=== PATIENT | female | born 1995 | race Caucasian/White ===

== ENCOUNTER 2024-10-30 19:06 | Emergency (ER) | payer BC, SELFPAY ==
[2024-10-30] VITALS (28 sets, daily range): BP systolic 90–157; BP diastolic 61–84; PULSE 75–96; RESP 20; TEMP 36.3; O2SAT 71–100
--- NOTE | 2024-10-30 19:15 | DI.CT_ITS ---
Exam(s) CT ABDOMEN PELVIS W EXAM: CT ABDOMEN PELVIS W CLINICAL HISTORY: epigastric abdominal pain. TECHNIQUE: Imaging Protocol: Axial computed tomography images with coronal and sagittal reformatted images were created and reviewed CONTRAST MATERIAL: Intravenous: Omnipaque-350 95cc COMPARISON: No exams were available for comparison FINDINGS: VISUALIZED LUNG BASES: No nodules nor pleural effusions evident. ABDOMEN: There is no ascites in the upper abdomen. LIVER: There are no focal hepatic lesions evident. No dilated intrahepatic ducts. GALLBLADDER/BILIARY: Gallbladder surgically absent. CBD is not dilated. PANCREAS: No evidence of pancreatic mass nor dilatation of the pancreatic duct. SPLEEN: Spleen is not enlarged. No obvious intrasplenic lesions. Splenic and portal veins are paten t. ADRENALS: There are no significant adrenal masses. KIDNEYS:No cysts evident. No solid renal masses. No calculi nor hydronephrosis.. ABDOMINAL AORTA: Abdominal aorta is not enlarged. LYMPH NODES:There is no retroperitoneal nor paraaortic adenopathy. ABDOMINAL WALL: No evidence of significant anterior abdominal wall nor inguinal hernia. GI: There is no evidence of bowel obstruction, free air, nor abscess. PELVIS: GI: Appendix is difficult to locate is a independent structure.No evidence of sigmoid diverticulitis. LYMPH NODES: There is no intrapelvic nor inguinal adenopathy. REPRODUCTIVE: Thickened endometrium which is age-appropriate. There is some fluid in it in the endoc ervical canal. There are cysts noted in both ovaries. This cyst in the right ovary measures 1.7 x 1 .8 cm. Small amount of fluid in the right-side of the pelvis noted. URINARY BLADDER: No calculi nor obvious masses evident OSSEOUS: No fractures and no significant osseous lesions. IMPRESSION: 1. The gallbladder surgically absent. The biliary tree is not dilated. No other findings in the upp er abdomen. 2. In the pelvis there is a 1.7 x 1.8 cm cyst in the right ovary probably dominant follicular and the re is a small amount of fluid in the right-side of the pelvis which is possibly related to female phy siologic versus is partially ruptured ovarian cyst. Cannot exclude appendicitis as the appendix is n ot able to be identified as a separate structure here. 3. If clinically indicated recommend repeat study with oral contrast. RADIATION DOSE DELIVERED: 403.82mGy.cm Total DLP DATA REPOSITORY: All CT scans at this facility are submitted to the National Radiology Data Registry (NRDR) Dose Index Registry (DIR) with the [employer] (ACR). RADIATION OPTIMIZATION: All CT scans at this facility use at least one of these dose optimization te chniques: automated exposure control; mA and/or kV adjustment per patient size (includes targeted exa ms where dose is matched to clinical indication); or iterative reconstruction.
--- NOTE | 2024-10-30 19:26 | ED.GENADUL_ITS ---
Discharge Plan Disposition Patient Disposition: Home Discharge Details Clinical Impression: Abdominal pain Primary Care Provider: Ruthann Morrell ED Provider: Flaco Murillo Home Meds and New Rx's Prescriptions: No Action No Known Home Meds Discharge Instructions Instructions: Abdominal Pain, Adult ED Referrals: Ruthann Morrell [Primary Care Provider] - 1 week HPI General Mode of arrival: ambulatory . Date/Time Provider Initiated Documentation: 10/30/24 19:13 . Limitations to Documentation: no limitations . Information obtained by: patient . HPI Narrative: 29-year-old female previously healthy presents with nausea vomiting abdominal pain. Dealing with this off and on for the last few months. Much worse in the last week and escalating over the last few days. Does not feel like she can take anything else and immediately has abdominal pain with eating. She has had nausea and vomiting. She has had loose stools. She has had dark stools but no obviously bloody or black stools. No vaginal bleeding or discharge. No urinary symptoms. She has had her gallbladder removed in the past. She has had a C- section in the past. Denies any other medical conditions or other previous surgeries. No allergies. She smokes cigarettes but she does not drink or do any drugs. Related Data Home Medications ?Medication ?Instructions ?Recorded ?Confirmed Unknown [No Known Home Meds] 10/30/24 10/30/24 Allergies Allergy/AdvReac Type Severity Reaction Status Date / Time No Known Allergies Allergy Unverified 10/30/24 19:13 General Stated Complaint: Abd Prob JOSE ANTONIO: 3 Review of Systems Constitutional Constitutional: Denies chills, Denies fever(s) and Denies headache(s) Eyes Eyes: Denies change in vision ENT Ears, Nose, Mouth, and Throat: Denies headache(s) and Denies odynophagia Cardiovascular Cardiovascular: Denies chest pain and Denies dyspnea Respiratory Respiratory: Denies dyspnea Gastrointestinal Gastrointestinal: Reports abdominal pain, Reports diarrhea, Reports nausea, Denies odynophagia and Reports vomiting Genitourinary Genitourinary: Denies abnormal vaginal bleeding, Denies menorrhagia, Denies dysuria, Denies pelvic pain and Denies vaginal discharge Musculoskeletal Musculoskeletal: Denies myalgias Integumentary/Breasts Skin/Breast: Denies changing lesions Neurologic Neurologic: Denies behavioral changes and Denies headache(s) Psychiatric Psychiatric: Denies behavioral changes Endocrine Endocrine: Denies heat intolerance Hematologic/Lymphatic Hematologic/Lymphatic: Denies lymphadenopathy Exam Const General: cooperative Nutritional Appearance: average body habitus Orientation: alert, awake and oriented x3 HENMT Head: normal to inspection Ears: external ears normal Mouth: moist mucous membranes Eyes Pupils: PERRL EOM: EOM intact bilaterally and No nystagmus Neck Neck: full ROM and no tracheal deviation Chest Chest: normal inspection of the chest Resp Auscultation: clear to auscultation bilaterally Cardio Rate: regular rate Rhythm: regular rhythm GI Inspection: normal to inspection Palpation: soft, no guarding and not rigid Other: Tender throughout the abdomen but primarily in the epigastric abdominal region with no guarding, rigidity, or rebound Back/Spine/Pelvis Back: No no CVA tenderness Thoracic/Lumbar Spine: thoracic and lumbar spine normal to inspection Skin General skin exam: no rashes or lesions noted Neuro General: patient alert, patient awake and patient oriented x3 Cranial Nerves: CN's II-XI intact bilaterally, PERRL and no nystagmus Cognition: normal cognition Motor: muscle tone normal throughout and strength 5/5 throughout Sensory Exam: no sensory deficits noted Extrem General: normal to inspection Course Vital Signs Vital signs: Vital Signs Temperature 36.3 C L 10/30/24 19:09 Pulse 95 H 10/30/24 19:09 Respiratory Rate 20 10/30/24 19:09 Blood Pressure 157/81 H 10/30/24 19:09 Pulse Oximetry 99 10/30/24 19:09 Temperature 36.3 C L 10/30/24 19:12 Pulse 95 H 10/30/24 19:12 Respiratory Rate 20 10/30/24 19:12 Blood Pressure 157/81 H 10/30/24 19:12 Pulse Oximetry 99 10/30/24 19:12 Oxygen Delivery Method Room Air 10/30/24 19:12 Oxygen Flow Rate 0 10/30/24 19:12 Medical Decision Making This is a 29-year-old female history of smoking, previous cholecystectomy, previous who is now presenting with nausea vomiting and abdominal pain. Heavily associated with the eating. Could represent GERD gastritis or peptic ulcer disease. Will check CBC to look for anemia. Will get biliary labs to look for signs of hepatitis, pancreatitis, or other biliary obstruction. Will check though less likely given patient's reported history. Will get broad labs to look for electrolyte or metabolic cause of the patient's symptoms such as hyponatremia, hypokalemia, acute renal dysfunction or signs of dehydration. She is tender throughout the abdomen and will get CT abdomen pelvis to evaluate for intra-abdominal abscess or bowel obstruction. This will also evaluate for kidney stones. Will also help us to evaluate for diverticulitis or appendicitis so I think that these are less likely. Will provide some IV analgesia as well as treatment for suspected GERD/gastritis/peptic ulcer disease while awaiting initial testing and reevaluate. 1130pm Labs unremarkable. CT showing possible colitis. No risk factors for C. difficile. No risk factors for fecal bacterial pathogen such as Shigella or Salmonella or Campylobacter. Likely a viral colitis. Still offered to send stool studies for her if she could give us a sample and she was able to provide 1 here. Will send testing for C. difficile, fecal bacterial pathogens, Giardia and Cryptosporidium as well as an ova and parasite exam given the acute on chronic nature of her diarrhea and abdominal pain. CT was also showing possible abscess versus focal bowel loop with air-fluid levels in the pelvis. I suspect that this most likely represents bowel seen in the pelvis and less likely to represent an abscess. She does still have pain. Again it does appear that the tenderness is more in the epigastric region making an abscess in the pelvis much less likely. Had a long discussion with the patient about the risks and benefits of repeating a scan with oral contrast as recommended with radiology. She would like to drink the contrast and go forward with the CT abdomen pelvis. I added on the stool studies. The CT abdomen pelvis was still pending. Signed out to the oncoming team pending CT abdomen pelvis and reevaluation. Medical Records Medical records reviewed: Yes I reviewed the patient's medical records. Imaging Data Radiologic Study: Attestation: I personally reviewed and interpreted this imaging study as follows: Imaging: CT Scan (abd and pelvis with IV contrast on 10/30/24 at 755pm) Radiologist's impression: IMPRESSION: 1. There is small caliber and decompression of the descending colon and sigmoid colon. Colonic fatty mural change present, most often a normal variation but sometimes seen in patients with chronic inflammatory process such as ulcerative colitis or Crohn's disease. No significant inflammatory changes present within the mesentery. This may represent early acute colitis. No mass identified. 2. There is a questionable fluid collection with an air-fluid level present within the pelvis image 62 series 8 this may represent bowel although a fluid collection secondary to inflammatory or infectious process can not be totally excluded, oral contrast may prove helpful for further evaluation. 3. Small amount of free fluid present within the dependent portion of the pelvis, likely physiologic. Consider ruptured ovarian cyst. Consider sympathetic inflammatory fluid. Lab Data Lab results reviewed: Yes I reviewed the patient's lab results. Lab results narrative: Serum labs grossly unremarkable. negative. Biliary labs unremarkable. No white count. Normal ESR and CRP making infection/abscess much less likely. Quality:[facility] Health Related Social Needs: No Data to Display [facility] All Active Problems (Updated 10/30/24 @ 23:41 by Sudhakar Zuniga MD) Abdominal pain (Acute) Social History Smoking risk assessment performed?: No
[2024-10-30] MEDS: Ketorolac 30 MG/ML VIAL IVP (19:40)
[2024-10-30] MEDS: Famotidine 20 MG TAB 40 MG PO (19:40)
[2024-10-30] MEDS: Ondansetron 4 MG/2 ML VIAL IVP (19:40)
[2024-10-30] MEDS: Lactated Ringers 1,000 ML 1000 ML IV (19:41)
[2024-10-30 19:53] LABS: ALT 30 U/L (14-59); AST 17 U/L (15-37); Albumin 4.6 g/dL (3.4-5.0); Alkaline Phosphatase 62 U/L (46-116); Anion Gap 11.7 mmol/L (3-11); BUN 13 mg/dL (7-18); Bilirubin, Total 0.5 mg/dL (0.2-1.0); CO2 28.3 mmol/L (21.0-32.0); CREATININE 0.7 mg/dL (0.55-1.02); Calcium 9.6 mg/dL (8.5-10.1); Chloride 101 mmol/L (98-107); Estimated GFR 119.24 (mL/min/1.73m2); Glucose 100 mg/dL (74-106); Lipase 33 U/L (<78); Potassium 3.5 mmol/L (3.5-5.1); Sodium 141 mmol/L (136-145)
[2024-10-30] MEDS: Normal Saline - Diluent 50 ML VIAL IJ ×2 (19:54→23:36)
[2024-10-30] MEDS: Omnipaque 350 MG/ML 100 ML BTL IJ ×2 (19:54→23:35)
[2024-10-30] MEDS: Normal Saline Flush 10 ML SYR IVP (19:55)
[2024-10-30 20:00] LABS: Abs Immature Grans 0.02 10^3/uL (0.0-0.06); Absolute Basophil Count 0.01 10^3/uL (0.0-0.2); Absolute Eosinophil Count 0.07 10^3/uL (0.0-0.7); Absolute Lymphocyte Count 3.05 10^3/uL (1.2-3.4); Absolute Monocyte Count 0.53 10^3/uL (0.1-0.8); Basophils % 0.1 %; Eosinophils % 0.8 %; HCT 42.8 % (36.0-46.0); Immature Grans % 0.2 %; MCH 32.4 pg (27.0-33.0); MCV 92 fL (80-95); MPV 9.8 fL (8.0-11.0); Monocytes % 6.3 %; Neutrophils % 56.6 %; Platelet Count 237 10^3/uL (130-400); RBC 4.63 10^6/uL (3.93-5.22); RDW 11.9 % (11.7-14.6); RDW-SD 41.1 fL; WBC 8.48 10^3/uL (4.4-10.8)
[2024-10-30 20:33] LABS: Bilirubin Negative (Negative); Blood Negative (Negative); Clarity Clear (Clear); Glucose Negative (Negative); Ketones Negative (Negative); Leukocyte Esterase Negative (Negative); Nitrite Negative (Negative); Specific Gravity 1.015 (1.005-1.025); Urobilinogen 0.2 mg/dL (Up to 0.2)
--- NOTE | 2024-10-30 21:01 | DI.VRAD_ITS ---
PROCEDURE INFORMATION: Exam: CT Abdomen And Pelvis With Contrast Exam date and time: 10/30/2024 7:55 PM Age: 29 years old Clinical indication: Abdominal pain; Epigastric; Prior surgery; Surgery date: 6+ months; Surgery type: Cholecystectomy, TECHNIQUE: Imaging protocol: Computed tomography of the abdomen and pelvis with contrast. Radiation optimization: All CT scans at this facility use at least one of these dose optimization techniques: automated exposure control; mA and/or kV adjustment per patient size (includes targeted exams where dose is matched to clinical indication); or iterative reconstruction. Contrast material: OMNIPAQUE 350; Contrast volume: 75 ml; Contrast route: INTRAVENOUS (IV); COMPARISON: No relevant prior studies available. FINDINGS: Lungs: The lungs are normal. There is no evidence of focal pulmonary consolidation. Pleural spaces: There is no evidence of pneumothorax. There are no pleural effusions present. Heart: The cardiac structures are normal. Liver: There is a diffuse decrease in hepatic parenchymal density, consistent with mild fatty infiltration. There are no focal liver lesions present. There is no evidence of intrahepatic or extrahepatic biliary ductal dilation. Gallbladder and biliary ducts: There has been a cholecystectomy. Pancreas: The pancreas is normal. Spleen: The spleen is normal. There are 2 separate accessory splenules are present. Adrenal glands: The adrenal glands are normal. Kidneys and ureters: The kidneys are normal. Stomach and bowel: There is no evidence of intestinal obstruction. No diverticulitis is present. There is small caliber and decompression of the descending colon and sigmoid colon. Colonic fatty mural change present, most often a normal variation but sometimes seen in patients with chronic inflammatory process such as ulcerative colitis or Crohn's disease. No significant inflammatory changes present within the mesentery. This may represent early acute colitis. No mass identified. Appendix: A normal appendix is identified. There is no evidence of distention or periappendiceal inflammation to suggest appendicitis. Intraperitoneal space: There is a questionable fluid collection with an air-fluid level present within the pelvis image 62 series 8 this may represent bowel although a fluid collection secondary to inflammatory or infectious process can not be totally excluded, oral contrast may prove helpful for further evaluation. There is no free intraperitoneal air. Small amount of free fluid present within the dependent portion of the pelvis, likely physiologic. Consider ruptured ovarian cyst . Vasculature: The aorta is normal without evidence of significant atherosclerosis or aneurysmal disease. The peripheral arterial vascular system visualized is unremarkable. The portal venous system visualized is unremarkable. The venous system visualized is unremarkable. Lymph nodes: There is no evidence of lymphadenopathy. Urinary bladder: The bladder is normal. Reproductive: Small amount of fluid within the endometrial cavity. Bilateral simple appearing cysts within the ovaries. The uterus is normal. The ovaries are otherwise normal. Bones/joints: The skeletal structures show no evidence of fracture or other acute processes. Soft tissues: There are no soft tissue masses or fluid collections. The extra-abdominal soft tissues are normal. IMPRESSION: 1. There is small caliber and decompression of the descending colon and sigmoid colon. Colonic fatty mural change present, most often a normal variation but sometimes seen in patients with chronic inflammatory process such as ulcerative colitis or Crohn's disease. No significant inflammatory changes present within the mesentery. This may represent early acute colitis. No mass identified. 2. There is a questionable fluid collection with an air-fluid level present within the pelvis image 62 series 8 this may represent bowel although a fluid collection secondary to inflammatory or infectious process can not be totally excluded, oral contrast may prove helpful for further evaluation. 3. Small amount of free fluid present within the dependent portion of the pelvis, likely physiologic. Consider ruptured ovarian cyst. Consider sympathetic inflammatory fluid. Dictated and Authenticated by: Fabrizio Yoon MD. Orderin Efrain De La Fuente MD
--- NOTE | 2024-10-30 21:30 | DI.CT_ITS ---
Exam(s) CT ABDOMEN PELVIS W EXAM: CT ABDOMEN PELVIS W CLINICAL HISTORY: abdominal pain. ? pelvic abscess vs loop of bowel.. TECHNIQUE: Imaging Protocol: Axial computed tomography images with coronal and sagittal reformatted images were created and reviewed CONTRAST MATERIAL: Intravenous: Omnipaque-350 75cc Oral: Yes. Oral contrast was administered for bowel opacification. COMPARISON: CT CT ABDOMEN PELVIS W from 10/30/2024 FINDINGS: VISUALIZED LUNG BASES: No nodules nor pleural effusions evident. ABDOMEN: There is no ascites. LIVER: There are no focal hepatic lesions evident. No dilated intrahepatic ducts. GALLBLADDER/BILIARY: Gallbladder again noted be surgically absent. CBD is not dilated. PANCREAS: No evidence of pancreatic mass nor dilatation of the pancreatic duct. SPLEEN: Spleen is not enlarged. No obvious intrasplenic lesions. Splenic and portal veins are paten t. ADRENALS: There are no significant adrenal masses. KIDNEYS:No cysts evident. No solid renal masses. No calculi nor hydronephrosis.. ABDOMINAL AORTA: Abdominal aorta is not enlarged. LYMPH NODES:There is no retroperitoneal nor paraaortic adenopathy. ABDOMINAL WALL: No evidence of significant anterior abdominal wall nor inguinal hernia. GI: There is no evidence of bowel obstruction, free air, nor abscess. PELVIS: GI: No evidence of appendicitis.No evidence of sigmoid diverticulitis. LYMPH NODES: There is no intrapelvic nor inguinal adenopathy. REPRODUCTIVE: Uterus appearance and size is age-appropriate. There is a 1.8 x 1.7 cm dominant follic ular cyst in the right ovary. There is trace fluid in the right adnexal region. Slightly smaller cy st seen in the opposite-left ovary. URINARY BLADDER: No calculi nor obvious masses evident OSSEOUS: No fractures and no significant osseous lesions. IMPRESSION: 1. There is a 1.8 x 1.7 cm dominant follicular cyst in the right ovary. Tiny amount of fluid in the right adnexa. Uterus size and appearance is age-appropriate. 2. No evidence of obvious acute appendicitis and no evidence of diverticulitis. 3. Previous cholecystectomy. The biliary tree is not dilated. 4. RADIATION DOSE DELIVERED: 418.94mGy.cm Total DLP DATA REPOSITORY: All CT scans at this facility are submitted to the National Radiology Data Registry (NRDR) Dose Index Registry (DIR) with the [employer] (ACR). RADIATION OPTIMIZATION: All CT scans at this facility use at least one of these dose optimization te chniques: automated exposure control; mA and/or kV adjustment per patient size (includes targeted exa ms where dose is matched to clinical indication); or iterative reconstruction.
[2024-10-30 21:40] LABS: Lab Add On Test DONE
[2024-10-30] MEDS: Omnipaque 350 MG/ML 50 ML BTL PO (21:45)
[2024-10-30] MEDS: Breeza Beverage 473 ML BTL PO ×2 (21:46→21:47)
[2024-10-30] MEDS: ACETAMINOPHEN 1,000 MG/100 ML BAG 400 MG IVPB (21:47)
[2024-10-30 22:07] LABS: C-Reactive Protein < 0.50 mg/dL (<or=0.5)
[2024-10-30 22:09] LABS: ESR 2 mm/hr (0-20)
--- NOTE | 2024-10-31 00:22 | DI.VRAD_ITS ---
PROCEDURE INFORMATION: Exam: CT Abdomen And Pelvis With Contrast Exam date and time: 10/30/2024 11:33 PM Age: 29 years old Clinical indication: Epigastric; Prior surgery; Surgery date: 6+ months; Surgery type: Cholecystectomy, c-setion; Abdominal pain. ? Pelvic abscess vs loop of bowel. TECHNIQUE: Imaging protocol: Computed tomography of the abdomen and pelvis with contrast. Radiation optimization: All CT scans at this facility use at least one of these dose optimization techniques: automated exposure control; mA and/or kV adjustment per patient size (includes targeted exams where dose is matched to clinical indication); or iterative reconstruction. Contrast material: OMNIPAQUE 350; Contrast volume: 75 ml; Contrast route: INTRAVENOUS (IV); Other contrast: Oral, omnipaque 350, 50; COMPARISON: CT ABDOMEN PELVIS W 10/30/2024 7:55 PM FINDINGS: Lungs: No consolidation at the lung bases. Pleural spaces: Small bilateral pleural effusions. Liver: Normal appearing liver. Gallbladder and biliary ducts: Prior cholecystectomy. No biliary dilatation. Pancreas: Normal appearing pancreas. Spleen: Normal appearing spleen. Adrenal glands: Normal appearing adrenal glands. Kidneys and ureters: Normal appearing kidneys. No hydronephrosis. Stomach and bowel: Stomach moderately distended with oral contrast. No small bowel dilatation to suggest obstruction. Cecum located in the deep right pelvis suggesting free mobility on an independent mesentery. Colon completely evacuated of formed fecal material. Apparent mural thickening through the collapsed well evacuated distal descending colon and proximal sigmoid colon. Artifact of incomplete distention ? Acute segmental colitis? Clinical correlation recommended. Appendix: Normal appendix. Intraperitoneal space: Trace fluid in the deep pelvis, better demonstrated by the recent prior exam. No free air. Vasculature: Normal caliber abdominal aorta. Lymph nodes: No pathologically enlarged mesenteric, retroperitoneal, or pelvic sidewall lymph nodes. Urinary bladder: Normal appearing urinary bladder. Reproductive: Anteverted uterus, normal in size. Ovaries partially obscured but normal in size. 1.8 cm dominant right ovarian follicle. Trace fluid in the right adnexal region. Possible 1.6 cm dominant left ovarian follicle, partially obscured by artifact. Bones/joints: No acute fracture seen among the bones of the abdomen or pelvis. Soft tissues: No significant ventral or inguinal hernia. IMPRESSION: 1. 1.8 cm dominant right ovarian follicle redemonstrated. Trace fluid in the deep right pelvis, better seen on the recent comparison exam. 2. Apparent pelvic fluid collection described in the report for the recent comparison exam is seen on the current exam to represent the cecum. There is no intraperitoneal abscess. 3. Mild mural thickening through the collapsed, completely evacuated distal descending colon and sigmoid colon. Artifact of incomplete distention is suspected. Colitis could perhaps mimic this appearance. Clinical correlation is recommended. 4. Small bilateral pleural effusions. Dictated and Authenticated by: Nakul Duncan MD. Orderin Efrain De La Fuente MD
[2024-10-31 00:29] LABS: C Diff PCR Negative (Negative); EPI 027-NAP1-B1 PRESUMPTIVE NEGATIVE
--- NOTE | 2024-10-31 00:51 | W.EDPROG ---
Date of service: 10/31/24 Time of Service: 00:51 Medical Decision Making Patient was signed out to me pending repeat CT scan out of concern for potential intra-abdominal abscess. Repeat CT scan shows no evidence of abscess. There is a ovarian follicle that is redemonstrated and some free fluid in the pelvic region, as well as some mild mural thickening in the colon. Symptoms may be secondary to mild colitis. We will start an antibiotic/Augmentin out of an abundance of caution. We we will also give Lomotil for occasional diarrhea. We will place surgical referral for outpatient assessment of potential need for repeat colonoscopy. On reassessment patient's vital signs are notably stable. No hypotension or tachycardia. She feels well except for having mild abdominal cramps. No evidence of an acute surgical abdomen. Patient stable for discharge. I have extensively reviewed the treatment plan and discharge instructions with the patient and their family. I have addressed all patient concerns at this time. The patient and family was made aware of what symptoms to monitor for that would warrant a return to the emergency department. Discussed the plan with the patient and family, they demonstrate verbal understanding and agreement with our assessment and plan at this time. The documentation in this chart was dictated using [employer] dictation software. Please excuse any dictation errors. FINDINGS: Lungs: No consolidation at the lung bases. Pleural spaces: Small bilateral pleural effusions. Liver: Normal appearing liver. Gallbladder and biliary ducts: Prior cholecystectomy. No biliary dilatation. Pancreas: Normal appearing pancreas. Spleen: Normal appearing spleen. Adrenal glands: Normal appearing adrenal glands. Kidneys and ureters: Normal appearing kidneys. No hydronephrosis. Stomach and bowel: Stomach moderately distended with oral contrast. No small bowel dilatation to suggest obstruction. Cecum located in the deep right pelvis suggesting free mobility on an independent mesentery. Colon completely evacuated of formed fecal material. Apparent mural thickening through the collapsed well evacuated distal descending colon and proximal sigmoid colon. Artifact of incomplete distention ? Acute segmental colitis? Clinical correlation recommended. Appendix: Normal appendix. Intraperitoneal space: Trace fluid in the deep pelvis, better demonstrated by the recent prior exam. No free air. Vasculature: Normal caliber abdominal aorta. Lymph nodes: No pathologically enlarged mesenteric, retroperitoneal, or pelvic sidewall lymph nodes. Urinary bladder: Normal appearing urinary bladder. Reproductive: Anteverted uterus, normal in size. Ovaries partially obscured but normal in size. 1.8 cm dominant right ovarian follicle. Trace fluid in the right adnexal region. Possible 1.6 cm dominant left ovarian follicle, partially obscured by artifact. Bones/joints: No acute fracture seen among the bones of the abdomen or pelvis. Soft tissues: No significant ventral or inguinal hernia. IMPRESSION: 1. 1.8 cm dominant right ovarian follicle redemonstrated. Trace fluid in the deep right pelvis, better seen on the recent comparison exam. 2. Apparent pelvic fluid collection described in the report for the recent comparison exam is seen on the current exam to represent the cecum. There is no intraperitoneal abscess. 3. Mild mural thickening through the collapsed, completely evacuated distal descending colon and sigmoid colon. Artifact of incomplete distention is suspected. Colitis could perhaps mimic this appearance. Clinical correlation is recommended. 4. Small bilateral pleural effusions. Thank you for allowing us to participate in the care of your patient. Dictated and Authenticated by: Nakul Duncan MD 10/31/2024 12:21 AM Eastern Time ( & [place] Quality:SDOH Health Related Social Needs: No Data to Display Discharge Plan Disposition Patient Disposition: Home Condition: Good Discharge Details Clinical Impression: Abdominal pain, Ovarian cyst rupture, Colitis Primary Care Provider: Ruthann Morrell ED Provider: Flaco Murillo Home Meds and New Rx's Prescriptions: New amoxicillin-pot clavulanate 875-125 mg tablet 1 tab PO BID 7 Days Qty: 14 0RF diphenoxylate-atropine [Lomotil] 2.5-0.025 mg tablet 1 tab PO DAILY PRNQty: 10 0RF Discharge Instructions Instructions: Abdominal Pain, Adult ED Additional Instructions: At this time your repeat imaging does not show any signs of large abscess. It appears that you may have had a ruptured ovarian cyst that is causing some of the fluid in your pelvis. Additionally there appears to be evidence of potential mild colitis which could be causing your persistent diarrhea. Please take the antibiotic as prescribed. Please take the Lomotil only as needed for cramping and persistent diarrhea. We have placed a referral with our surgeons for potential further discussion of colonoscopy and repeat colonic assessment. If you notice any worsening of your symptoms, or any new symptoms such as vomiting, diarrhea, fever, chills, shortness of breath, chest pain, numbness, weakness, or fainting , please return immediately to the emergency department for reevaluation. Please follow up with your primary care provider as soon as possible for reassessment and reevaluation. As always, it was a pleasure participating in your medical care today. Referrals: Ruthann Morrell [Primary Care Provider] - 1 week
[2024-10-31 00:55] VITALS: BP 103/57; PULSE 74
[2024-10-31 01:01] VITALS: BP 103/57; PULSE 74; RESP 18; TEMP 36.8; O2SAT 99
== END 2024-10-31 01:01 | disposition home or self-care (01) ==
PROVIDERS: Student in an Organized Health Care Education/Training Program; Emergency Provider Student in an Organized Health Care Education/Training Program; PCP Registered Nurse
DX: R10.13 Epigastric pain (principal); N83.01 Follicular cyst of right ovary; K52.9 Noninfective gastroenteritis and colitis, unspecified; Z90.49 Acquired absence of other specified parts of digestive tract
CPT/HCPCS: 00123; 36415; 80053; 81025; 83690; 85652; 87328; 87329; 87505; 96361; 96374; 96375; 99285; 74177; 81003; 85025; 86140; 87177; J0131; J1885; J2405; J3490; Q9967

== ENCOUNTER 2024-12-07 08:08 | Day surgery (SDC) | payer BC, SELFPAY ==
--- NOTE | 2024-12-06 18:48 | PDOC.DSDIS_ITS ---
Date of service: 12/07/24 Discharge Plan Disposition Patient Disposition: Home Condition: Good Discharge Details Reason For Visit: EGD Attending Provider: Hair Carrillo Primary Care Provider: Ruthann Morrell Home Meds and New Rx's Prescriptions: New sucralfate 1 gram tablet 1 g PO BID Qty: 60 2RF Discontinued bisacodyl 5 mg tablet,delayed release (DR/EC) 5 mg PO ONCE Qty: 4 0RF Rx Instructions: Per Colonoscopy bowel prep instructions polyethylene glycol 3350 17 gram/dose powder 238 g PO ONCE Qty: 238 0RF Rx Instructions: For Colonoscopy bowel prep, as directed by office Discharge Instructions Instructions: Gastritis Additional Instructions: Crystal, it was very nice meeting you today, and I hope you make a quick recovery from the procedure. As we talked about afterwards, I did not a ppreciate any significant narrowing or stricturing of the lower portion of the esophagus. I am able to get the camera across this with ease, and in that regards, a little skeptical that this is contributing much to your symptom. As I mentioned, the most striking finding was the amount of bile that was in your stomach. Although bile is a normal part of our digestion, and should be within the gastrointestinal tract, some patients can have significant symptoms when bile reflux is from the small intestine up into the stomach. I wonder if that is really the driving source of your symptoms. As we talked about, I will start a medication called sucralfate. Will trial that over a week or so, and I will wait for the biopsy results from the EGD to see if that sheds any other light on the situation. We can always add a proton pump inhibitor such as the pantoprazole that you took in the past, to see if that impacts her symptoms as well. If were not able to better control your symptoms, then a referral down to the motility specialist at [facility] may be useful, since they can take other measurements of the stomach and esophagus such as acid production and pressure changes. If you need anything, or have any questions at all, please do not hesitate to ask, otherwise we will be in touch when I get the biopsy results. Stand Alone Forms: Anesthesia Discharge Inst., Carli Jacinto (DSU) Activity:: Activity as Tolerated Diet:: As Tolerated DS: Diagnosis Discharge Diagnosis (1) Bile reflux gastritis: Status: Acute Asessment and Plan: Follow-up on biopsy results; trial sucralfate
--- NOTE | 2024-12-06 18:49 | W.PM.ENDDOP ---
Date of service: 12/07/24 Time of Service: 10:07 Endoscopy Report DATE OF PROCEDURE: 12/07/24 PRE-OP DIAGNOSIS: Esophageal stricture POST-OP DIAGNOSIS: other (Gastritis with bile reflux) PROCEDURE: EGD with biopsies SURGEON: Hair Carrillo ESTIMATED BLOOD LOSS: 5 PATHOLOGY: other (Nondirected biopsies of gastric antrum and body to rule out Helicobacter pylori. Cold forcep biopsies of gastric ulcer, four-quadrant biopsies of GE junction) COMPLICATIONS: None DISPOSITION: same day INDICATIONS: Holly is a 29-year-old woman with dysphagia. She underwent EGD approximately 2 years ago that suggested a distal esophageal stricture. She was advised to follow-up with a repeat EGD PROCEDURE START TIME: 09:32 PROCEDURE END TIME: :42 FINDINGS: Gastritis with evidence of bile reflux PROCEDURE DESCRIPTION: After the initiation of anesthesia, and with the assistance of a bite block, I advanced a standard gastroscope through the mouth past the hypopharynx and into the esophagus.? Under the direct vision of the scope, I advanced down the esophagus towards the stomach.? The upper, mid, and lower esophagus were normal in course and caliber. Mucosa appeared normal and healthy. The Z-line measures 36 cm from the incisors and is regular. Narrowband imaging was used to assist with the analysis here. I did not appreciate any evidence of stricturing. I did not see any signs of esophageal webs or rings. Once I entered the stomach, I performed a brief inspection, followed by retroflexion towards the gastric cardia.? I do not appreciate any hiatal hernias. Most striking, in the stomach, there is the presence of a significant amount of bile. This was seen refluxing across the pylorus into the stomach. The stomach was irrigated clean, and completely insufflated. On the posterior wall of the stomach, within the main body, is a small area of what appears to be healing ulceration. This is flat. Its only mildly discolored. This was biopsied with cold forceps with minimal bleeding. The pylorus is widely patent, and I can pass across this with ease into the duodenal bulb. The villi are normal and healthy appearing. I advanced down to the second portion of the duodenum, and this all appeared normal. I then brought the camera back up into the stomach, and perform some nondirected biopsies of the gastric antrum and body. There was mild inflammation of the gastric antrum consistent with mild gastritis. I suspect this is secondary to bile reflux. I then brought the camera back up across the GE junction and distal esophagus for several passes. Again, I really do not see any signs of esophageal stricture here. I did do four-quadrant biopsies of the GE junction just to be safe, although I do not suspect that this is Ramos's esophagus. I advanced the camera back down into the stomach and perform some nondirected biopsies of the gastric antrum and body to rule out Helicobacter pylori as a source of inflammation or symptoms. These biopsies were all done with cold forceps with minimal bleeding. Stomach was then completely emptied, and the camera was brought back out along the length of the esophagus 1 last time. She has already been biopsied for eosinophilic esophagitis, and those results were negative, therefore I did not perform any more biopsies along the length of the esophagus. The camera was then removed, and Crystal was transferred back to the day surgery unit
[2024-12-07 08:25] VITALS: BP 112/65; PULSE 82; RESP 16; O2SAT 100
[2024-12-07] MEDS: Lactated Ringers 1,000 ML 80 ML IV (08:38)
--- NOTE | 2024-12-07 09:04 | W.ANESPRE ---
General Info Date of Service Date Performed: 12/07/24 Height: 5 ft 1 in Weight: 62.2 kg Body Mass Index (BMI): 25.9 Surgical Procedure: Operation Date: 12/07/24 09:05 Proposed Procedure Side Surgeon p Gastroscopy with possible Dilation Hair Carrillo MD Pre-Op Diagnosis Post-Op Diagnosis EGD Meds Allergies and Home Medications Allergies Allergy/AdvReac Type Severity Reaction Status Date / Time No Known Allergies Allergy Verified 12/07/24 08:31 Current Visit Medications: Current Medications Generic Name Dose Route Start Last Admin Trade Name Freq PRN Reason Stop Dose Admin Ringer's Solution 1,000 mls @ 80 mls/hr 12/07/24 06:00 12/07/24 08:38 IV 12/07/24 23:59 80 mls/hr INFUSION NILE Administration IV Miscellaneous Supplies 1 each 12/07/24 06:00 Iv Access IV 12/07/24 23:59 DIRECTED NILE Sodium Chloride 0 ml 12/07/24 06:00 Normal Saline Flush 10 Ml Syr IV 12/07/24 23:59 PRN PRN Sodium Chloride 0 ml 12/07/24 06:00 Normal Saline 10 Ml Vial IJ 12/07/24 23:59 DIRECTED PRN Sterile Water 0 ml 12/07/24 06:00 Water,Injection,Sterile 10 Ml Vial IJ 12/07/24 23:59 DIRECTED PRN PFSH Medical History Medical History Hyperthyroidism Graves disease Per pt. states it is under control, was able to come off medication for over a year now Surgical History Surgical History Hx of total cystectomy Hx of section Hx of cholecystectomy Hx of wisdom tooth extraction Tobacco Smoking/Tobacco Use Status: Current every day Tobacco Type: cigarettes Smoking cigarettes per day: 10 Passive smoking exposure: Yes Alcohol Alcohol Intake: current Alcohol intake frequency: holidays/special occasions only Substance Use Substance use: Never Substance use type: does not use Vital Signs and Lab Results Vital Signs Most Recent Vital Signs in EMR: Most Recent Vital Signs Pulse Resp BP Pulse Ox 82 16 112/65 100 12/07/24 08:25 12/07/24 08:25 12/07/24 08:25 12/07/24 08:25 Point of Care Results Point of Care Results: POC- Test(urine) Negative 12/07/24 08:48 Lab Results Blood Type / Crossmatch: No Data to Display Complete Blood Count: No Data to Display Complete Metabolic Panel: No Data to Display Liver Function Panel: No Data to Display Coagulation Panel: No Data to Display Cardiac Panel: No Data to Display Arterial Blood Gas: No Data to Display Venous Blood Gas: No Data to Display Pancreas Panel: No Data to Display Thyroid Panel: No Data to Display Infectious Disease: No Data to Display Blood Cultures: No Data to Display Toxicology Panel: No Data to Display Panel: No Data to Display Anesthesia Assessment and Plan Anesthesia History Personal History: No History of Anesthesia Complications Family History: No Family History of Anesthesia Complications Exercise Tolerance Exercise Tolerance: Metabolic Equivalents>4 Pertinent Negatives Pertinent Negatives: No Symptoms of GERD, No Major Cardiovascular Symptoms or Complaints, No Major Pulmonary Symptoms or Complaints and No History of CVA/TIA Cardiac & Pulmonary Exam Cardiac Exam: Normal S1/S2 Heart Sounds Pulmonary Exam: Clear Bilateral Breath Sounds Implantable Cardiac Device Does patient have a Pacemaker or an ICD?: No Airway Exam Known Difficult Airway: No Mallampati Class: 1 Mouth Opening: Normal (> 3cm) Thyromental Distance: Greater than 3 cm Neck Range of Motion: Full ROM Neck Circumference: Normal Teeth Condition: Normal Dentition ASA Classification ASA Score: ASA 2 Emergency Case?: No NPO Status NPO Status: NPO Clears >2 hours, Solids >8 hours Status Status: Negative HCG Anesthesia Plan Resuscitation Status: Full Code Anesthesia Technique: General Anesthesia Airway Planned: Natural Airway Monitors Used: Standard Monitors
--- NOTE | 2024-12-07 09:36 | STOM_PTH ---
PATIENT: Lonnie Michelle LOC: [facility] U#:[id number] AGE/SX: 29/F ROOM: RE12/07/[address]: Hair Carrillo MD : [id number] BED: DIS: 12/07/2024 SPEC #: [id number] RECD: 12/07/24 12:58 STATUS: RASHAUN REQ #: [id number] TEMITOPE: 12/07/24 09:[address]: Hair Carrillo DEPT: Surgical Specimen RECD BY: Katy Villarreal ENTERED: 12/07/24 13:00 SP TYPE: STOMACH OTHR DR: Ruthann Morrell Tissues: 1 - STOMACH BIOPSY 2 - STOMACH BIOPSY 3 - STOMACH BIOPSY 4 - ESOPHAGUS BIOPSY Procedures: GROSS AND MICRO LEVEL 4 Comments: [id number]
[2024-12-07 09:50] VITALS: BP 113/55; PULSE 87; RESP 16; TEMP 36.2; O2SAT 98
[2024-12-07 10:16] VITALS: BMI 25.9
--- NOTE | 2024-12-07 10:17 | W.ANESPOSTOP ---
Postoperative Evaluation Date, Time and Location Date Performed: 12/07/24 Time Performed: 10:17 Patient Location: Day Surgery Unit Vital Signs Most Recent Imported Vital Signs: Most Recent Vital Signs Temp Pulse Resp BP Pulse Ox 36.2 C L 87 16 113/55 L 98 12/07/24 09:50 12/07/24 09:50 12/07/24 09:50 12/07/24 09:50 12/07/24 09:50 Pain Score Most Recent Pain Score: Most Recent Pain Score Pain Level 0 12/07/24 08:25 Assessment Mental Status: Awake (Alert & Oriented to Patient Baseline) Airway and Respiratory Function: Patent airway with normal (patient baseline) respiratory exam Cardiovascular Function: Hemodynamically Stable Hydration Status: Adequately Hydrated Nausea & Vomiting: No Nausea or Vomiting Pain: Pt. Denies Any Pain Peripheral Nerve Block: Patient did not receive a nerve block Postoperative Comments:: Significant reactivity intraop and postop. Primarily coughing, has settled now. Discussed possible etiology, all questions answered with partner, Manuel, at bedside.
[2024-12-07 10:39] VITALS: BP 120/95; PULSE 76; RESP 16; TEMP 36.4; O2SAT 99
== END 2024-12-07 10:51 | disposition home or self-care (01) ==
LOC: SUR 08:08
PROVIDERS: PCP Registered Nurse; Visit Provider Surgery
PROC: 0D758ZZ Dilation of Esophagus, Via Natural or Artificial Opening Endoscopic (ICD-10-PCS; CPT 43239; principal; 2024-12-07 09:00)
DX: K29.60 Other gastritis without bleeding (principal); K31.9 Disease of stomach and duodenum, unspecified; K20.90 Esophagitis, unspecified without bleeding
CPT/HCPCS: 43239; 81025; 88305; J2003; J2704